=== PATIENT | female | born 1955 | race Two or more races ===

== ENCOUNTER 2024-02-25 09:05 | Emergency (ER) | payer MEDICARE, SELFPAY ==
[2024-02-25 09:13] VITALS: BP 155/97
--- NOTE | 2024-02-25 10:03 | ED.GENMED ---
History of Present Illness
General
Chief Complaint: Headache
Source: patient
Time Seen by Provider: 02/25/24 09:41
History of Present Illness
History of Present Illness:
68yoF with a history of hypertension, migraines, and chronic back pain presenting for evaluation of a headache. Patient reports a headache for the past 5 to 6 days. Headache feels identical to her prior migraines. Headache is located on the top
of her head 'from the forehead up.' She currently rates her pain as an 8/10 in severity. She reports associated nausea and vomiting. No photophobia, fevers, neck stiffness, head trauma. She has not been taking anything OTC. Patient recently
moved to the area about 2 months ago and has not established with a PCP yet. Patient was previously taking Maxalt for her migraines.
Phy Exam
General Physical Exam
General Presentation: well appearing and no apparent distress
General age: appears stated age
General Skin: warm and dry
General Habitus: normal
General Mental: alert
ENT Exam
ENT Exam: normocephalic
Additional ENT: No nuchal rigidity
Eye Exam
Eye Exam: PERRL and conjunctiva normal
Cardiovascular Exam
Cardiovascular Exam: regular rate/rhythm
Pulmonary Exam
Pulmonary Exam: lungs clear, no respiratory distress, no crackles and no wheezing
Neurological Exam
Neurological Exam: alert and no motor deficits
[place] Coma Scale
Eye Opening: Spontaneous
Verbal Response: Oriented
Motor Response: Obeys Commands
GCS Total Score: 15
Skin Exam
Skin Exam: normal color and warm/dry
Psychiatric Exam
Psychiatric Exam: normal mood/affect
Course
Orders/Labs/Results
Orders:
Orders
02/25/24 10:01
0.9% Sodium Chloride 1000 ml [Nss] 1,000 ml IV BOLUS
Diphenhydramine [Benadryl] 25 mg IV NOW STA
Ketorolac [Toradol] 15 mg IV NOW STA
Magnesium Sulfate 1 G/D5w [Magnesium Sulfate] 1 gm in 100 ml IV NOW
Metoclopramide [Reglan] 10 mg IV NOW STA
02/25/24 12:01
Dexamethasone Sod Phosphate [Decadron] 10 mg IV NOW STA
Vital Signs
Initial and Last Documented VS:
Initial Vital Signs
Temp Pulse Resp BP Pulse Ox
99.2 F 86 16 155/97 95
02/25/24 09:13 02/25/24 09:13 02/25/24 09:13 02/25/24 09:13 02/25/24 09:13
Last Documented Vital Signs
Temp Pulse Resp BP Pulse Ox
99.2 F 84 14 109/62 96
02/25/24 09:13 02/25/24 10:18 02/25/24 10:18 02/25/24 12:00 02/25/24 12:00
MDM/Problems Addressed
Differential Diagnosis Includes:
68yoF here with a migraine x 5-6 days. Hx of migraines and this feels the same. Not worst of life. Currently an 8/10 in severity. No fevers or neck stiffness. She is afebrile and hemodynamically stable. She is well-appearing in no acute distress.
No meningismus or focal neuro deficits on exam. Differential diagnosis includes but is not limited to: Migraine, tension headache, doubt meningitis, doubt subarachnoid hemorrhage
Initial ED plan: Defer head imaging given reassuring exam and history. IV migraine cocktail and reassess.
*Critical Care Note
Total Time (30-74mins, 75-104mins- exclusive of procedures): Not Applicable
Update Note
Update Note:
Patient feeling significantly improved on reassessment. Headache is now a 3/10 in severity. She feels comfortable for discharge. Supportive care discussed. Advised follow-up with PCP. ED return precautions discussed. She was discharged in
stable condition.
ED Attending Note
-
Portions of this chart may have been created with voice recognition software.� Occasional wrong word or��sound alike� substitutions may have occurred due to the inherent limitations of voice recognition software.
Discharge Plan
Departure
Patient Disposition: Home (Routine Discharge)
Date of Disposition: 02/25/24
Time of Disposition: 12:02
Patient with high blood pressure during this ER visit?: Yes
Discharge Problem:
Acute nonintractable headache
Instructions: Migraines (DC)
Referrals:
NONE,* [Family Provider] -
Anatoly Quijano MD [Active] -
Mariam Brooks MD [Active] -
Activity Restrictions/Additional Instructions:
Please follow-up with a primary care provider. Return to the ER with any new or worsening symptoms.
Interventions
Interventions:
*Risk Screen - Suicide Last Done: 02/25/24 10:18
*General Assessment Last Done: 02/25/24 10:18
*Neglect/Abuse Screening Last Done: 02/25/24 10:18
ED- Fall Risk Assessment Last Done: 02/25/24 10:18
*ED COVID-19 Vaccine History Last Done: 02/25/24 10:18
*Nursing Disposition Last Done: 02/25/24 12:22
ED- Neurological Assessment Last Done: 02/25/24 10:18
Discharge Date and Time
Discharge Date/Time: 02/25/24 12:23
Print Language: [id number]
[2024-02-25 10:18] VITALS: BP 148/87; BMI 26.3
[2024-02-25 10:20] VITALS: BP 148/87
[2024-02-25] MEDS: NSS 1000 IV (10:41)
[2024-02-25] MEDS: MAGNESIUM SULFATE 100 IV (10:41)
[2024-02-25] MEDS: TORADOL 15 MG IV (10:44)
[2024-02-25] MEDS: BENADRYL 25 MG IV (10:45)
[2024-02-25] MEDS: REGLAN 10 MG IV (10:46)
[2024-02-25 11:00] VITALS: BP 122/59
[2024-02-25 12:00] VITALS: BP 109/62
[2024-02-25] MEDS: DECADRON 10 MG IV (12:08)
== END 2024-02-25 12:23 | disposition home or self-care (01) ==
LOC: EMR 09:05
PROVIDERS: EMERGENCY PHYSICIAN Student in an Organized Health Care Education/Training Program
DX: R51.9 Headache, unspecified (principal); I10 Essential (primary) hypertension
CPT/HCPCS: 99282; 96365; 96375